=== PATIENT | male | born 1965 | race Caucasian/White ===

== ENCOUNTER 2019-06-21 09:41 | Emergency (ER) | payer MEDICAID ==
[~2019-06-21] VITALS: Ht 185.4 cm; Wt 115.0 kg
[2019-06-21] MEDS ORDERED: TRAZ-137 PO (10:26)
[2019-06-21] MEDS ORDERED: FLUT1DIS5 IH (10:26)
[2019-06-21] MEDS ORDERED: QUET200T4 PO (10:26)
[2019-06-21] MEDS ORDERED: LISI-167 PO (10:26)
[2019-06-21] MEDS ORDERED: INDIGESTION MED (10:26)
[2019-06-21] MEDS ORDERED: IBUP-1222 PO (10:26)
[2019-06-21] MEDS ORDERED: ALBU1.25 NEB (10:26)
--- NOTE | 2019-06-21 10:26 | NUR ---
PT PRESENTS TO ED WITH BILATERAL LOWER EXTREMITY EDEMA. PT REPORTS EDEMA FOLLOWS ETOH USE, HAS BEEN TO [facility] AND NOW AT [facility], NO ETOH SINCE 06/08/19. RECLINED IN BED, NAD NOTED AT THIS TIME. RESPIRATIONS EVEN AND UNLABORED. SIDE RAIL UP, PT IN GOWN, CALL LIGHT IN REACH. AWAITING PROVIDER.
--- NOTE | 2019-06-21 11:10 | NUR ---
RN DISCUSSED TELE PSYCH WITH PT, A CONSULT PT COULD HAVE RESOURCE WHILE IN ED. PT DENIED ANY DESIRE CURRENTLY FOR SUCH SERVICES. NAD NOTED, PT SITTING UP WATCHING TELEVISION.
--- NOTE | 2019-06-21 11:53 | NUR ---
PT SITTING UP IN BED WATCHING TELEVISION. NAD NOTED AT THIS TIME. IMAGING AT BEDSIDE.
[2019-06-21 11:56] LABS: BASOPHILS # (AUTO) 0.03 x10^3/uL (0-0.1); BASOPHILS % (AUTO) 0 % (0-1); EOSINOPHILS # (AUTO) 0.08 x10^3/uL (0-0.4); EOSINOPHILS % (AUTO) 1 % (1-7); LYMPHOCYTES # (AUTO) 1.93 x10^3/uL (1-3.4); LYMPHOCYTES % (AUTO) 22 % (22-44); MD NO; MEAN CORPUSCULAR HEMOGLOBIN 33.4 pg (27.5-34.5); MEAN CORPUSCULAR HGB CONC 33.7 g/dL (33.2-36.2); MEAN PLATELET VOLUME 8.5 fL (7.4-10.4); MONOCYTES # (AUTO) 0.65 x10^3/uL (0.2-0.8); MONOCYTES % (AUTO) 8 % (2-9); NEUTROPHILS # (AUTO) 5.94 x10^3/uL (1.8-6.8); NEUTROPHILS % (AUTO) 69 % (42-75); PLATELET COUNT 226 x10^3/uL (130-400); RED BLOOD COUNT 3.55 x10^6/uL (4.38-5.82)
[2019-06-21 12:09] LABS: ALBUMIN 3.6 g/dL (3.4-5.0); ANION GAP 7 mmol/L (5-15); CALCIUM 8.7 mg/dL (8.5-10.1); CHLORIDE 112 mmol/L (98-107); GAMMA GLUTAMYL TRANSPEPTIDASE 319 U/L (15-85)
[2019-06-21 12:13] LABS: ALANINE AMINOTRANSFERASE 65 U/L (12-78); ALKALINE PHOSPHATASE 56 U/L (45-117); BILIRUBIN,TOTAL 0.2 mg/dL (0.2-1.0); CREATININE 1.19 mg/dL (0.7-1.3); TOTAL PROTEIN 7.1 g/dL (6.4-8.2)
[2019-06-21 14:48] VITALS: BP 126/72
== END 2019-06-21 15:02 | disposition home or self-care (01) ==
LOC: ED 11:46
DX: M79.662 Pain in left lower leg (principal); J44.9 Chronic obstructive pulmonary disease, unspecified
CPT/HCPCS: 36415; 80053; 80307; 82977; 85025; 99284